=== PATIENT | female | born 2000 | race Hispanic/Latino ===

== ENCOUNTER 2022-12-05 15:00 | Emergency (ER) | payer OTHER, SELFPAY ==
[2022-12-05] VITALS (7 sets, daily range): BP systolic 99–107; BP diastolic 52–66; PULSE 66–74; RESP 16; TEMP 36.7; O2SAT 97–100; BMI 20.1
[2022-12-05 16:03] LABS: Add Manual Diff / Slide Review NO; Basophils Absolute Auto 100 /uL (0-100); Basophils Percent Auto 1.3 % (0-2); Eosinophils Absolute Auto 200 /uL (0-450); Hemoglobin 11.6 g/dL (12.0-16.0); Lymphocytes Absolute Auto 1600 /uL (1100-4500); Mean Corpuscular HGB Conc 32.3 % (30-36); Mean Corpuscular Hemoglobin 24.6 PG (26-34); Mean Corpuscular Volume 76.2 fL (80-100); Monocytes Absolute Auto 800 /uL (0-900); Monocytes Percent Auto 10.1 % (3-14); Neutrophils Absolute Auto 4900 /uL (1500-7000); Neutrophils Percent Auto 64.6 % (50-75); Platelet Count 311 X10^3/uL (150-400); Red Blood Cell Count 4.72 X10^6/uL (4.0-5.2); White Blood Cell Count 7.6 X10^3/uL (4.5-11.0)
[2022-12-05 16:36] LABS: Alanine Aminotransferase 13 IU/L (<35); Albumin 4.3 g/dL (3.5-5.0); Albumin Globulin Ratio 1.2 (1.0-2.8); Alkaline Phosphatase 57 U/L (38-126); Aspartate Aminotransferase 26 IU/L (14-36); BUN Creatinine Ratio 16.5 (6-22); Bilirubin Total 0.5 mg/dL (0.2-1.3); Blood Urea Nitrogen 14 mg/dL (7-17); Calcium 8.5 mg/dL (8.4-10.2); Carbon Dioxide 24 mmol/L (22-32); Chloride 102 mmol/L (98-107); Estimated Glomerular Filt Rate > 60 mL/min (>60); Globulin 3.5 g/dL (1.7-4.1); Glucose 90 mg/dL (70-100); HEMOLYSIS < 15 (0-50); Lipase 96 U/L (23-300); Sodium 135 mmol/L (137-145); Total Protein 7.8 g/dL (6.3-8.2)
--- NOTE | 2022-12-05 19:50 | ED_ITS ---
HPI - Abdominal Pain General Chief Complaint: Abdominal Pain Stated Complaint: rt sided abd pain moving to back Time Seen by Provider: 12/05/22 19:42 Source: patient and family Mode of arrival: Ambulatory History of Present Illness HPI narrative: 22F nonsmoker with noncontributory medical history presents with family in the chief complaint of episodes of severe right lower quadrant pain for the past few days. She states it seems to come and go with a mind of its own and there is no obvious provocation or palliation but does state that when it is very intense it might get a bit worse when she moves and seems to get better she sits still. She also complains of some back pain that she does not think is related and did not start until right before she got here. She denies fever or chills. She has no nausea, vomiting or diarrhea. She denies vaginal bleeding or discharge. She states her last menstrual cycle was about 1 month ago. Related Data Allergies Allergy/AdvReac Type Severity Reaction Status Date / Time No Known Drug Allergies Allergy Verified 12/05/22 15:25 Review of Systems Review of Systems Narrative: GENERAL: Denies chills, fatigue, malaise, fever, sweats. HEENT: Denies sinus pain, ear pain, sore throat, difficulty swallowing, dizziness. RESPIRATORY: Denies dyspnea, cough, wheezing, hemoptysis, sputum. CARDIOVASCULAR: Denies chest pain, palpitations, orthopnea, edema, GASTROINTESTINAL: See HPI : See HPI MUSCULOSKELETAL: See HPI SKIN: Denies rash, skin lesions, or other NEUROLOGIC: Denies weakness, headache, numbness, change in speech, confusion, seizures, incoordination. PSYCHIATRIC: No concerning psychosocial issues. 12 point review of systems is negative except for those stated above Patient History Social History Smoking Status: Never smoker Smoking Status: Never smoker alcohol intake frequency: a few times a month Substance Use Type: marijuana Exam Narrative Exam Narrative: GENERAL: [22] year old patient appears stated age. Well-developed patient, in mild distress. HEAD: Atraumatic. Normocephalic. EYES: Pupils equal round and reactive. Extraocular motions intact. No scleral icterus. No injection or drainage. ENT: Nose without bleeding, purulent drainage. Throat without erythema, tonsillar hypertrophy or exudate. Airway patent. NECK: Trachea midline. Non tender CARDIOVASCULAR: Regular rate and rhythm without murmurs, gallops, or rubs. RESPIRATORY: Clear to auscultation. Breath sounds equal bilaterally. No wheezes, rales, or rhonchi. GASTROINTESTINAL: Abdomen soft, non-tender, nondistended. EXTREMITIES: No edema or joint tenderness. BACK: Nontender without deformity or crepitance. No flank tenderness. NEURO: AOx3. SKIN: No rash or erythema of visible areas Initial Vital Signs Initial Vital Signs: Vital Signs Temperature 98.1 F 12/05/22 15:21 Pulse Rate 74 12/05/22 15:21 Respiratory Rate 16 12/05/22 15:21 Blood Pressure 99/64 12/05/22 15:21 Pulse Oximetry 97 12/05/22 15:21 Oxygen Delivery Method Room Air 12/05/22 15:21 Course Orders Ordered: ED Orders 12/05/22 20:29 US pelvic complete Stat Discontinued Medications Ondansetron HCl (Ondansetron 4 Mg Odt) 4 mg PO NOW PRN PRN Reason: Nausea And Vomiting Ondansetron HCl (Ondansetron 4 Mg/2 Ml Inj) 4 mg IV NOW PRN PRN Reason: Nausea And Vomiting Vital Signs Vital signs: Vital Signs - 8 hr 12/05/22 20:30 12/05/22 20:30 12/05/22 21:00 Pulse Rate 70 Blood Pressure 107/66 101/52 L Pulse Oximetry 100 Oxygen Delivery Method Room Air 12/05/22 21:00 12/05/22 21:30 12/05/22 21:30 Pulse Rate 66 70 Blood Pressure 101/56 L Pulse Oximetry 100 100 Oxygen Delivery Method Room Air Room Air MDM - Abdominal Pain Lab Data 12/05/22 15:50 12/05/22 15:50 Labs: Lab Results 12/05/22 12/05/22 Range/Units 15:50 15:50 WBC 7.6 (4.5-11.0) X10^3/uL RBC 4.72 (4.0-5.2) X10^6/uL Hgb 11.6 L (12.0-16.0) g/dL Hct 36.0 (36-46) % MCV 76.2 L (80-100) fL MCH 24.6 L (26-34) PG MCHC 32.3 (30-36) % RDW 16.0 H (11.6-14.8) % Plt Count 311 (150-400) X10^3/uL Neut % (Auto) 64.6 (50-75) % Lymph % (Auto) 21.0 L (25-40) % [place] % (Auto) 10.1 (3-14) % Eos % (Auto) 3.0 (2-4) % Baso % (Auto) 1.3 (0-2) % Neut # (Auto) 4900 (4227-3125) /uL Lymph # (Auto) 1600 (9790-9523) /uL [place] # (Auto) 800 (0-900) /uL Eos # (Auto) 200 (0-450) /uL Baso # (Auto) 100 (0-100) /uL Sodium 135 L (137-145) mmol/L Potassium 4.0 (3.4-5.1) mmol/L Chloride 102 (98-107) mmol/L Carbon Dioxide 24 (22-32) mmol/L BUN 14 (7-17) mg/dL Creatinine 0.85 (0.52-1.04) mg/dL Estimated GFR > 60 (>60) mL/min BUN/Creatinine Ratio 16.5 (6-22) Glucose 90 (70-100) mg/dL Calcium 8.5 (8.4-10.2) mg/dL Total Bilirubin 0.5 (0.2-1.3) mg/dL AST 26 (14-36) IU/L ALT 13 (<35) IU/L Alkaline Phosphatase 57 (38-126) U/L Total Protein 7.8 (6.3-8.2) g/dL Albumin 4.3 (3.5-5.0) g/dL Globulin 3.5 (1.7-4.1) g/dL Albumin/Globulin Ratio 1.2 (1.0-2.8) Lipase 96 (23-300) U/L Point of care testing: Point of Care Testing Test Results Negative Urine Dip Bedside Urine Glucose Negative Bedside Urine Bilirubin - Negative Bedside Urine Ketone - Negative Urine Specific [place] 1.01 Bedside Urine Occult Blood - Negative Bedside Urine pH 7 Bedside Urine Protein - Negative Bedside Urine Urobilinogen - Negative Bedside Urine Nitrite - Negative Bedside Urine Leukocytes - Negative Esterase MDM Narrative Medical decision making narrative: [age] year old patient presents with right lower quadrant pain Multiple etiologies for patient's symptoms considered including, but not limited to: [Appendicitis versus ovarian cyst versus torsion versus UTI versus kidney stone versus other] Prior Charts reviewed in our EMR Primary Historian: patient Labs reviewed and interpreted by myself: No leukocytosis or left shift, electrolytes, LFTs, renal function all within normal limits Imaging reviewed: Pelvic ultrasound notes a septated right ovarian cyst Patient's symptoms improved over duration of stay with above-stated therapies. Patient asymptomatic for majority of visit, pain well controlled, tolerating orals, no signs of surgical indication, Findings and discharge diagnosis discussed with patient/family followed by verbalization of understanding Return precautions discussed with patient/family whom verbalize understanding of diagnosis and plan Discharge Plan Departure Patient Disposition: Home Clinical Impression: Cyst of right ovary Instructions: DI for Ovarian Cyst Activity Restrictions/Additional Instructions: *You have been diagnosed with [right ovarian cyst pain] *What to do: *Please consider the use of routine anti-inflammatories such as ibuprofen/Motrin/Naprosyn *Please follow up with your primary care provider in 2-3 days, call for an appointment. Let them know you were seen in the Emergency Department and that we ask that you be seen in follow up. We will electronically transmit a record of today's note if your PCP is in our system *If you do not have a primary care provider please contact the [facility] julito line at [phone]. They will ask some questions about your medical history and help get you set up with a doctor in the community. *Return to Emergency Department if you should have any new, worsening or concerning symptoms, such as [fever greater than 101 F, shaking chills, worsening pain, persistent vomiting or other bothersome symptoms] Stand Alone Forms: Patient Portal/API
--- NOTE | 2022-12-05 20:29 | DI.US.S_ITS ---
PROCEDURE: US PELVIC COMPLETE INDICATIONS: RLQ PAIN TECHNIQUE: Real-time scanning was performed of the pelvic organs, with image documentation. Additional endovaginal scanning was necessary due to incomplete visualization of the adnexal and endometrial structures by transabdominal scanning. COMPARISON: None. FINDINGS: Uterus: Uterus is anteverted and measures 6.6 x 3.3 x 4.9 cm. Endometrium measures up to 1.4 cm. Ovaries: The right ovary measures 4.7 x 2.6 x 3.7 cm, with a calculated ovarian volume of 23.4 cc. The left ovary measures 2.1 x 3.3 x 1.5 cm, with a calculated ovarian volume of 5.5 cc. The ovaries have a normal sonographic appearance. Less than 12 follicles can be seen in each ovary. No adnexal masses. There is a multiloculated septated cyst in the right ovary measuring up to 4.3 x 2.2 x 2.8 cm. There also lace-like internal septations. No definite internal vascularity within the cyst on color Doppler interrogation. There is patent arterial flow demonstrated within the right ovary. Other: There is a small amount of pelvic free fluid which appears within physiologic limits. The appendix is not visualized sonographically. IMPRESSION: 1. Appendix not discretely visualized sonographically. 2. Septated right ovarian cyst suggestive of a hemorrhagic cyst. However, given the presence of thick internal septations, a follow-up ultrasound is recommended in 6 weeks to demonstrate resolution if clinically indicated. 3. No definite evidence of torsion in the right ovary. We strive to produce accurate, complete, and clear reports of imaging services. To assist us in improving patient care, this report was composed using standard report templates and voice recognition software. Therefore, it may contain abnormal punctuation, insertions and/or omissions. Occasional wrong-word or sound-alike substitutions may occur. Though we review the report and make efforts to correct it, we do recommend that the report be read carefully in proper context to recognize any text inaccuracies. Dictated by: Levar Breaux M.D. on 12/05/2022 at 22:05 Approved by: Levar Breaux M.D. on 12/05/2022 at 22:08
== END 2022-12-05 21:44 | disposition home or self-care (01) ==
PROVIDERS: Emergency Medicine; Emergency Provider Emergency Medicine
DX: N83.201 Unspecified ovarian cyst, right side (principal)
CPT/HCPCS: 36415; 76830; 76856; 80053; 81003; 81025; 83690; 85025; 93976; 99284

== ENCOUNTER 2023-01-02 21:01 | Emergency (ER) | payer OTHER, SELFPAY ==
[2023-01-02] VITALS (7 sets, daily range): BP systolic 104–119; BP diastolic 52–68; PULSE 71–79; RESP 16; TEMP 37.2; O2SAT 98–100; BMI 19.9
[2023-01-02 21:43] LABS: Appearance Urine UA CLOUDY; Bilirubin Urine UA 1+ (NEGATIVE); Color Urine UA YELLOW; Glucose Urine UA NEGATIVE (Negative); Ketones Urine UA TRACE (NEGATIVE); Leukocyte Esterase Urine UA NEGATIVE (NEGATIVE); Nitrite Urine UA NEGATIVE (Negative); Occult Blood Urine UA 3+ (Negative); Protein Urine UA 2+ (Negative); Specific Gravity Urine UA >=1.030 (1.000-1.035)
[2023-01-02 21:47] LABS: Pregnancy Test Urine Negative (Negative)
[2023-01-02 21:53] LABS: Ictotest Urine Negative (Negative)
[2023-01-02 22:14] LABS: RBC Urine 30-100/HPF (0-5/HPF)
[2023-01-02 22:15] LABS: Bacteria Urine Many (>30); Culture Indicated Urine Specimen Cultured; Squamous Epithelial Cell Urine 10-30 /HPF (0-5/HPF); Transitional Epi Cells Urine 1-5/HPF (0-5/HPF); WBC Urine 10-30/HPF (0-5/HPF)
[2023-01-02] MEDS: SODIUM CHLORIDE 0.9% 1,000 ML 1000 ML IV (22:16)
[2023-01-02 22:34] LABS: Alanine Aminotransferase 14 IU/L (<35); Albumin 4.8 g/dL (3.5-5.0); Albumin Globulin Ratio 1.3 (1.0-2.8); Alkaline Phosphatase 58 U/L (38-126); Aspartate Aminotransferase 23 IU/L (14-36); BUN Creatinine Ratio 11.4 (6-22); Bilirubin Total 0.2 mg/dL (0.2-1.3); Blood Urea Nitrogen 9 mg/dL (7-17); Calcium 9.5 mg/dL (8.4-10.2); Carbon Dioxide 22 mmol/L (22-32); Chloride 102 mmol/L (98-107); Estimated Glomerular Filt Rate > 60 mL/min (>60); Globulin 3.6 g/dL (1.7-4.1); Glucose 98 mg/dL (70-100); HEMOLYSIS < 15 (0-50); Lipase 113 U/L (23-300); Potassium 3.5 mmol/L (3.4-5.1); Sodium 138 mmol/L (137-145); Total Protein 8.4 g/dL (6.3-8.2)
[2023-01-02 22:36] LABS: Add Manual Diff / Slide Review NO; Basophils Absolute Auto 100 /uL (0-100); Basophils Percent Auto 1.2 % (0-2); Eosinophils Absolute Auto 100 /uL (0-450); Hematocrit 37.9 % (36-46); Hemoglobin 12.3 g/dL (12.0-16.0); Lymphocytes Absolute Auto 1700 /uL (1100-4500); Lymphocytes Percent Auto 25.4 % (25-40); Mean Corpuscular HGB Conc 32.4 % (30-36); Mean Corpuscular Hemoglobin 24.9 PG (26-34); Mean Corpuscular Volume 76.9 fL (80-100); Monocytes Absolute Auto 700 /uL (0-900); Monocytes Percent Auto 10.6 % (3-14); Neutrophils Absolute Auto 4100 /uL (1500-7000); Neutrophils Percent Auto 61.8 % (50-75); Platelet Count 316 X10^3/uL (150-400); Red Blood Cell Count 4.93 X10^6/uL (4.0-5.2); Red Cell Distribution Width 16.5 % (11.6-14.8); White Blood Cell Count 6.6 X10^3/uL (4.5-11.0)
[2023-01-03] VITALS (8 sets, daily range): BP systolic 98–112; BP diastolic 53–57; PULSE 64–70; O2SAT 98–100
--- NOTE | 2023-01-03 01:11 | ED.ABDPAIN ---
HPI - Abdominal Pain General Chief Complaint: Abdominal Pain Stated Complaint: RLQ ABD PAIN, HX OF CYSTS Time Seen by Provider: 01/03/23 01:11 Source: patient Mode of arrival: Ambulatory Limitations: no limitations History of Present Illness HPI narrative: 22-year-old healthy female who was found to have a cyst in her right lower quadrant in November. Patient states she is had pain on and off but was worse this evening. She did not take any pain medication. She is not had any fevers she did have some nausea but no vomiting. No chest pain no shortness of breath. She is had no dysuria urgency or frequency she states no spotting, no discharge or vaginal bleeding. She states menses is due in about a week. Patient states normal bowel movements no black or bloody stools. She states pain is located in the right lower quadrant does not radiate to her back. She states no daily medications. No prior surgeries. No known drug allergies. No tobacco, occasional alcohol, occasional THC, no recreational drugs. She states this does feel similar to her cyst but a little bit more intense. She is accompanied by her mother. Related Data Previous Rx's Medication Instructions Recorded nitrofurantoin 100 mg PO Q12H 5 days #10 caps 01/03/23 monohydrate/macrocrystals 100 mg capsule (Macrobid) Allergies Allergy/AdvReac Type Severity Reaction Status Date / Time No Known Drug Allergies Allergy Verified 12/05/22 15:25 Review of Systems Review of Systems ROS Unobtainable: All systems reviewed & are unremarkable except as noted in HPI and below Patient History Social History Smoking Status: Never smoker Smoking Status: Never smoker alcohol intake frequency: a few times a month Substance Use Type: marijuana Exam Narrative Exam Narrative: GENERAL: Alert and oriented x three, thin, well-appearing female in mild distress. HEENT: Head normocephalic, atraumatic, EOMI, pupils reactive, face symmetric, moist mucous membranes NECK: Supple, full range of motion CARDIOVASCULAR: Regular rate and rhythm without murmurs, rubs or gallops. RESPIRATORY: Breath sounds equal bilaterally, no wheezes rales or rhonchi. ABDOMEN: Soft, positive for right lower quadrant tenderness. Normoactive bowel sounds all 4 quadrants. No guarding or rebound, rigidity, no mass. Nondistended. : No CVA tenderness bilaterally. EXTREMITIES: Normal range of motion, no clubbing or edema. Neurovascularly intact NEUROLOGICAL: Cranial nerves II through XII grossly intact. Moving all extremities SKIN: Warm, dry, no petechiae, no rashes or lesions. Initial Vital Signs Initial Vital Signs: Vital Signs Temperature 99 F 01/02/23 21:08 Pulse Rate 79 01/02/23 21:08 Respiratory Rate 16 01/02/23 21:08 Blood Pressure 108/52 L 01/02/23 21:08 Pulse Oximetry 100 01/02/23 21:08 Oxygen Delivery Method Room Air 01/02/23 21:08 Course Orders Ordered: ED Orders 01/02/23 21:30 Ictotest Urine Stat Test Urine Stat Urinalysis and Microscopic Stat Urine Culture Stat 01/02/23 21:36 EKG-12 Lead Stat 01/02/23 22:08 Complete Blood Count AUTO DIFF Stat Comprehensive Metabolic Panel Stat Lipase Stat 01/03/23 01:22 US pelvic complete Stat Discontinued Medications Sodium Chloride (Normal Saline 0.9%) 1,000 mls @ 1,000 mls/hr IV BOLUS ONE Stop: 01/02/23 22:36 Last Infusion: 01/02/23 23:18 Dose: Infused Documented By: Admin: 01/02/23 22:16 Dose: 1,000 mls/hr Documented By: NICOLE Ketorolac Tromethamine (Ketorolac 30 Mg/Ml Vial) 15 mg IV NOW ONE Stop: 01/03/23 01:24 Last Admin: 01/03/23 01:45 Dose: 15 mg Documented By: NICOLE Nitrofurantoin Macrocrystals (Nitrofurantoin Er 100 Mg Capsule) 100 mg PO NOW ONE Stop: 01/03/23 03:10 Last Admin: 01/03/23 03:17 Dose: 100 mg Documented By: NICOLE Ondansetron HCl (Ondansetron 4 Mg Odt) 4 mg PO NOW PRN PRN Reason: Nausea And Vomiting Ondansetron HCl (Ondansetron 4 Mg/2 Ml Inj) 4 mg IV NOW PRN PRN Reason: Nausea And Vomiting Vital Signs Vital signs: Vital Signs - 8 hr 01/02/23 21:08 01/02/23 22:10 01/02/23 22:11 Temperature 99 F Pulse Rate 79 77 Respiratory Rate 16 Blood Pressure 108/52 L 118/68 Pulse Oximetry 100 98 Oxygen Delivery Method Room Air Room Air 01/02/23 22:11 01/02/23 22:30 01/02/23 22:30 Temperature Pulse Rate 72 74 Respiratory Rate Blood Pressure 110/65 Pulse Oximetry 100 100 Oxygen Delivery Method Room Air Room Air 01/02/23 22:37 01/02/23 22:37 01/02/23 23:00 Temperature Pulse Rate 71 Respiratory Rate Blood Pressure 119/61 110/56 L Pulse Oximetry 100 Oxygen Delivery Method Room Air 01/02/23 23:00 01/02/23 23:30 01/02/23 23:30 Temperature Pulse Rate 76 72 Respiratory Rate Blood Pressure 104/54 L Pulse Oximetry 99 99 Oxygen Delivery Method Room Air Room Air 01/03/23 00:00 01/03/23 00:00 01/03/23 00:30 Temperature Pulse Rate 69 Respiratory Rate Blood Pressure 104/57 L 112/55 L Pulse Oximetry 98 Oxygen Delivery Method Room Air 01/03/23 00:30 01/03/23 01:00 01/03/23 01:00 Temperature Pulse Rate 69 64 Respiratory Rate Blood Pressure 103/53 L Pulse Oximetry 99 98 Oxygen Delivery Method Room Air 01/03/23 01:30 01/03/23 01:30 01/03/23 02:00 Temperature Pulse Rate 70 64 Respiratory Rate Blood Pressure 100/55 L Pulse Oximetry 98 98 Oxygen Delivery Method Room Air Room Air 01/03/23 02:00 01/03/23 02:30 01/03/23 02:30 Temperature Pulse Rate 67 Respiratory Rate Blood Pressure 101/57 L 98/54 L Pulse Oximetry 99 Oxygen Delivery Method 01/03/23 03:00 01/03/23 03:05 01/03/23 03:05 Temperature Pulse Rate 70 66 Respiratory Rate Blood Pressure 101/53 L Pulse Oximetry 99 100 Oxygen Delivery Method Room Air Room Air MDM - Abdominal Pain Lab Data 01/02/23 22:08 01/02/23 22:08 Labs: Lab Results 01/02/23 01/02/23 Range/Units 21:30 22:08 WBC 6.6 (4.5-11.0) X10^3/uL RBC 4.93 (4.0-5.2) X10^6/uL Hgb 12.3 (12.0-16.0) g/dL Hct 37.9 (36-46) % MCV 76.9 L (80-100) fL MCH 24.9 L (26-34) PG MCHC 32.4 (30-36) % RDW 16.5 H (11.6-14.8) % Plt Count 316 (150-400) X10^3/uL Neut % (Auto) 61.8 (50-75) % Lymph % (Auto) 25.4 (25-40) % [place] % (Auto) 10.6 (3-14) % Eos % (Auto) 1.0 L (2-4) % Baso % (Auto) 1.2 (0-2) % Neut # (Auto) 4100 (2860-3456) /uL Lymph # (Auto) 1700 (5432-1722) /uL [place] # (Auto) 700 (0-900) /uL Eos # (Auto) 100 (0-450) /uL Baso # (Auto) 100 (0-100) /uL Sodium 138 (137-145) mmol/L Potassium 3.5 (3.4-5.1) mmol/L Chloride 102 (98-107) mmol/L Carbon Dioxide 22 (22-32) mmol/L BUN 9 (7-17) mg/dL Creatinine 0.79 (0.52-1.04) mg/dL Estimated GFR > 60 (>60) mL/min BUN/Creatinine Ratio 11.4 (6-22) Glucose 98 (70-100) mg/dL Calcium 9.5 (8.4-10.2) mg/dL Total Bilirubin 0.2 (0.2-1.3) mg/dL AST 23 (14-36) IU/L ALT 14 (<35) IU/L Alkaline Phosphatase 58 (38-126) U/L Total Protein 8.4 H (6.3-8.2) g/dL Albumin 4.8 (3.5-5.0) g/dL Globulin 3.6 (1.7-4.1) g/dL Albumin/Globulin Ratio 1.3 (1.0-2.8) Lipase 113 (23-300) U/L Urine Color Yellow Urine Appearance Cloudy Urine pH 5.0 (4.5-8.0) Ur Specific [place] >=1.030 H (1.000-1.035) Urine Protein 2+ H (Negative) Urine Glucose (UA) Negative (Negative) g/dL Urine Ketones Trace H (NEGATIVE) Urine Occult Blood 3+ H (Negative) Urine Nitrate Negative (Negative) Urine Bilirubin 1+ H (NEGATIVE) Ur Bilirubin Confirm Negative (Negative) Urine Urobilinogen 1.0 (0.2) E.U./dL Ur Leukocyte Esterase Negative (NEGATIVE) Urine RBC 30-100/hpf H (0-5/HPF) Urine WBC 10-30/hpf H (0-5/HPF) Ur Squamous Epith Cells 10-30 /hpf H (0-5/HPF) Ur Transition Epith Cell 1-5/hpf (0-5/HPF) Urine Bacteria Many (>30) H (None) Ur Culture Indicated? Specimen cultured Urine Test Negative (Negative) Imaging Data US - abdomen: Radiologist's Impression: Ultrasound pelvis, anteverted uterus 7 cm in length normal myometrium, normal endometrium 4 mm thickness, right ovary is 2.8 x 2 x 1.5 cm left ovary is 1.4 x 3 x 1.6. Normal color Doppler with arterial/venous spectral tracing in both ovaries no free fluid appendix was not visualized. On ultrasound on 12/05/2022 patient had septated right ovarian cyst which is not noted on today's ultrasound. [facility] Narrative Medical decision making narrative: 22-year-old female with right lower quadrant tenderness likely ovarian cyst she had a cyst on ultrasound with septated was recommended for follow up has not had this at this point. But is localized to the right lower quadrant so potential for patient to have 2 problems at the same time such as appendicitis. Patient's labs are overall reassuring her urine does show possible infection in blood with 3200 RBCs, 10-30 wbc's, 10-30 squamous epithelials and many bacteria. She is no back or flank pain making kidney stone less likely but suspect possible UTI is potential source as well. Ultrasound was obtained shows normal ovaries with normal flow. Appendix was not visualized. No free fluid was noted. Patient received Toradol. Discussed with patient he suspect UTI type symptoms with her urine sample. We discussed we have not totally ruled out appendicitis but would treat with antibiotics with watchful waiting and return. We did discuss CT abdomen and pelvis patient defers. Discharge Plan Departure Patient Disposition: Home Clinical Impression: UTI (urinary tract infection) Instructions: DI for Urinary Tract Infection (UTI) Activity Restrictions/Additional Instructions: Please follow-up for recheck if your symptoms are not improving over 24-48 hours with oral antibiotics. The cyst on your right ovary appears to have resolved. Your appendix was not visualized but there are no secondary signs of appendicitis. Appendicitis has not been completely ruled out but your urine sample is very suspicious for infection. You may take Tylenol up to a 1000 mg every 6 hours and/or ibuprofen up to 600 mg every 6 hours as needed for pain. Take antibiotics until completed. Prescription sent to [facility] in [place]. Please return for fevers, rapidly worsening abdominal back or flank pain, persistent vomiting, difficulty with urination, black or bloody stools or other new or concerning changes. Prescriptions: New nitrofurantoin monohyd/m-cryst [Macrobid] 100 mg capsule 100 mg PO Q12H 5 Days Qty: 10 0RF Rx Instructions: must administer with a meal/food Referrals: Kevin Payne MD [Primary Care Provider] - Stand Alone Forms: Patient Portal/API, Work Release Note
--- NOTE | 2023-01-03 01:22 | DI.US.S_ITS ---
PROCEDURE: US PELVIC COMPLETE INDICATIONS: RIGHT PELVIC PAIN TECHNIQUE: Real-time scanning was performed of the pelvic organs, with image documentation. Additional endovaginal scanning was necessary due to incomplete visualization of the adnexal and endometrial structures by transabdominal scanning. COMPARISON: [facility], US, US PELVIC COMPLETE, 12/05/2022, 20:58. [facility] Ultrasound, US, US PELVIC COMPLETE WITH TRANSVAGINAL, 01/21/2020, 13:22. FINDINGS: Uterus: Uterus is anteverted and normal in size at 7 x 3.1 x 4.1 cm. The myometrium is homogeneous. The endometrium measures 3.6 mm combined thickness. Ovaries: The right ovary measures 2.8 x 2 x 1.5 cm, with a calculated ovarian volume of 4.3 cc. Normal appearing arterial waveforms are confirmed to the right ovary. The left ovary measures 1.4 x 3 x 1.6 cm, with a calculated ovarian volume of X 3.4 cc. The ovaries have a normal sonographic appearance. Less than 12 follicles can be seen in each ovary. No adnexal masses are seen. Other: No pathologic free abdominal or pelvic fluid. No appendix (either normal or abnormal) is identified on this study. IMPRESSION: Negative for right ovarian torsion. No appendix (either normal or abnormal) is identified on this study. Note: No significant discrepancy from the preliminary report. We strive to produce accurate, complete, and clear reports of imaging services. To assist us in improving patient care, this report was composed using standard report templates and voice recognition software. Therefore, it may contain abnormal punctuation, insertions and/or omissions. Occasional wrong-word or sound-alike substitutions may occur. Though we review the report and make efforts to correct it, we do recommend that the report be read carefully in proper context to recognize any text inaccuracies. Dictated by: Raj Alcaraz M.D. on 01/03/2023 at 9:35 Approved by: Raj Alcaraz M.D. on 01/03/2023 at 9:36
[2023-01-03] MEDS: KETOROLAC 30 MG/ML VIAL 15 MG IV (01:45)
[2023-01-03] MEDS: NITROFURANTOIN ER 100 MG CAPSULE PO (03:17)
[2023-01-09 20:51] LABS: CK-BB 0 % (0); CK-MB 0 % (0-3); CK-MM 100 % (97-100); Macro Type 1 0 % (Not Observed); Macro Type 2 0 % (Not Observed)
== END 2023-01-03 03:26 | disposition home or self-care (01) ==
PROVIDERS: Emergency Provider Emergency Medicine; PCP Internal Medicine
DX: N39.0 Urinary tract infection, site not specified (principal)
CPT/HCPCS: 36415; 76830; 76856; 80053; 81001; 81025; 82550; 82553; 83690; 85025; 87086; 93005; 93976; 96361; 96374; 99284; J1885